=== PATIENT | male | born 1950 | race Caucasian/White ===

== ENCOUNTER 2016-11-09 07:01 | Day surgery (SDC) | payer BC, OTHER ==
[2016-11-02 08:17] LABS: HEMATOCRIT 45.5 % (40.0-51.0); HEMOGLOBIN 15.6 g/dL (13.6-17.8)
[2016-11-02 08:34] LABS: CALCIUM, SERUM 8.8 MG/DL (8.5-10.4); CHLORIDE, SERUM 106 MMOL/L (96-112); CO2 (CARBON DIOXIDE) 24 MMOL/L (24-34); CREATININE 1.57 MG/DL (0.70-1.30); GFR AFRICAN AMERICAN 52 ML/MIN (>=60); GFR NON AFRICAN AMERICAN 45 ML/MIN (>=60); POTASSIUM, SERUM 4.5 MMOL/L (3.5-5.3); SODIUM, SERUM 142 MMOL/L (135-148)
[2016-11-02 08:35] LABS: BUN (BLOOD UREA NITROGEN) 24 MG/DL (6-23); GLUCOSE, SERUM 200 MG/DL (60-99)
[2016-11-02 08:52] LABS: ASCORBIC ACID (UR NOT ORDER) NEG (NEG); BILIRUBIN, URINE NEGATIVE (NEG); KETONE, URINE NEGATIVE (NEG); LEUKOCYTE ESTERASE(NOT OR NEG (NEG); WBC (NOT ORDERED) (RFLEX) < 1 (0-5)
--- NOTE | ~2016-11-09 | OP ---
Record Of Operation [facility] [address] [place]. [address] NAME: DORI VALVERDE : 50 STATUS : [facility]#: [id number] AGE: 66 ADM/REG DATE : 11/09/16 MR#: [id number] REPORT SERV DATE: 11/09/16 DICTATED BY: NOBLE WATSON DATE: 11/09/16 REPORT STATUS : Draft TRANSCRIBED BY: MODL DATE: 11/09/16 DATE OF PROCEDURE: 11/09/2016 SURGEON: Noble Watson M.D. TITLE OF OPERATION: 1. Insertion of three-piece penile prosthesis. 2. Penile modeling. PREOPERATIVE DIAGNOSES: Erectile dysfunction. POSTOPERATIVE DIAGNOSIS: Erectile dysfunction. INDICATIONS: Mr. Valverde is a 66-year-old male with erectile dysfunction. He has failed oral medical therapy as well as penile injection therapy. He is here for penile prosthesis. Risk, benefits, and expected outcomes are reviewed in detail. ANESTHESIA: General. COMPLICATIONS: None. IMPLANTS: Three-piece penile prosthesis. NARRATIVE: The patient was brought to the operating room, identified by his wristband. General anesthesia was induced and he was placed in the supine position. Vancomycin and gentamicin were given for preoperative antibiotics. A 10-minute chlorhexidine scrub was performed. The patient was then prepped and draped in sterile fashion. A butterfly needle was injected into the left corporal body and saline was used to induce an erection. A 3-cm incision just above the base of the penis was made. The incision was deepened through Jj's fascia. The corporal bodies were identified. Two 2-0 Monocryl sutures were placed laterally on each corporal body, and these were snapped. Corporotomies were then made with a 15-blade knife bilaterally. The corporal bodies were dilated proximally and distally and measured bilaterally. The length of the penis was 20 cm on both sides. An 18 cm prosthesis with 2 cm rear tip extenders were chosen. Chlorhexidine was prepared on the back table. I entered the space of Retzius to the external inguinal ring. A 100 mL flat reservoir was placed into the space of Retzius. It was inflated with 100 mL of sterile water. Next, using the Collin needle and Tip applicator, the cylinders were placed into the corporal bodies bilaterally. A test erection was performed. There was some dorsal curvature of the penis. The rubber shots were used to obstruct the cylinders. Penile modeling was obtained to break up a Peyronie's plaque. The penis was much straighter upon this maneuver. Next, a subdartos pouch was made in the left hemiscrotum. The pump was placed into the scrotum in a very dependent portion. The corporotomies were closed with the pre-placed Monocryl sutures. There were no large defects. The wound was irrigated extensively with antibiotic- impregnated solution. A flat TR drain was placed through a separate stab incision on the right side of the body. The subcutaneous tissues were closed with a running 3-0 Vicryl suture. Skin was closed with 4-0 Monocryl suture in a subcuticular fashion. Dermabond Record Of Operation [facility] [id number] [place]. [address] NAME: DORI VALVERDE : 50 STATUS : [facility] PAT#: [id number] AGE: 66 ADM/REG DATE : 11/09/16 MR#: [id number] REPORT SERV DATE: 11/09/16 DICTATED BY: NOBLE WATSON DATE: 11/09/16 REPORT STATUS : Draft TRANSCRIBED BY: BEN DATE: 11/09/16 dressing was placed. The drain was sutured in place with a 2-0 Prolene suture. An 8 mL of 0.25% percent Marcaine was used for anesthesia. The device was left partially inflated to hold the space appropriately. A 3 L saline bag was placed on the incision on the way to the recovery room. The patient will be discharged home. Follow up with me tomorrow for drain removal. PETER/BEN Noble Watson MD / [id number] CC: MD Elliott Toro D.O.
[~2016-11-09 07:01] MED LIST: ASAB PO; NEUR300 PO; PRIN20 PO; SPIRO25 PO; TOPXL50 PO
[2016-11-15] MEDS ORDERED: PCET PO (19:47)
[2016-11-15] MEDS ORDERED: NEUR800 PO (19:48)
[2016-11-15] MEDS ORDERED: PRIN20 PO (19:48)
[2016-11-15] MEDS ORDERED: BACDS PO (19:48)
[2016-11-15] MEDS ORDERED: ASAB PO (19:51)
[2016-11-15] MEDS ORDERED: LOP50 PO (19:51)
[2016-11-15] MEDS ORDERED: SPIRO25 PO (19:51)
[2016-11-16] MEDS ORDERED: LIPITOR40 PO (16:49)
[2016-11-16] MEDS ORDERED: PLAVIX PO (16:49)
== END 2016-11-09 17:03 | disposition home or self-care (01) ==
LOC: SDC 07:01
PROVIDERS: Urology
PROC: 0VUS0JZ Supplement Penis with Synthetic Substitute, Open Approach (ICD-10-PCS; principal; 2016-11-09 09:30)
DX: N52.9 Male erectile dysfunction, unspecified (principal); I10 Essential (primary) hypertension; G45.9 Transient cerebral ischemic attack, unspecified; I73.9 Peripheral vascular disease, unspecified; E11.9 Type 2 diabetes mellitus without complications; N28.9 Disorder of kidney and ureter, unspecified; M19.90 Unspecified osteoarthritis, unspecified site; F17.210 Nicotine dependence, cigarettes, uncomplicated; Z79.899 Other long term (current) drug therapy; Z79.82 Long term (current) use of aspirin; Z90.49 Acquired absence of other specified parts of digestive tract; Z95.5 Presence of coronary angioplasty implant and graft; Z98.890 Other specified postprocedural states
CPT/HCPCS: 80048; 81001; 82962; 85014; 85018; 93005; C1813; J1580; J2405; J3010; J3370